=== PATIENT | female | born 1990 | race Two or more races ===

== ENCOUNTER 2017-04-06 18:15 | Inpatient (IN) | payer OTHER ==
[~2017-04-06] VITALS: Ht 157.5 cm; Wt 90.0 kg
[2017-04-06] MEDS ORDERED: KETOROLAC 30 MG/1 ML IM ONE (18:30)
[2017-04-06] MEDS ORDERED: KETOROLAC 30 MG/1 ML ONE (19:02)
[2017-04-06 20:14] LABS: HEMATOCRIT 41.1 % (34.6-47.8); HEMOGLOBIN 13.9 g/dL (11.7-16.4); WHITE BLOOD COUNT 8.5 x10^3/uL (3.4-10)
[2017-04-06 20:16] LABS: BLOOD UREA NITROGEN 12 mg/dL (7-18)
[2017-04-06] MEDS ORDERED: POLYETHYLENE GLYCOL 17 GM PACKET PO PRN (23:00)
[2017-04-06] MEDS ORDERED: BISACODYL 10 MG SUPP PR PRN (23:00)
[2017-04-06] MEDS ORDERED: ASPIRIN 325 MG TABLET EC PO ONE (23:00)
[2017-04-06] MEDS ORDERED: ONDANSETRON 2MG/ML, 2ML IVPush PRN (23:00)
[2017-04-07 00:33] VITALS: BP 132/86
[2017-04-07] MEDS ORDERED: ASPIRIN 81 MG TABLET EC PO ONE (02:00)
[2017-04-07] MEDS: HEPARIN 5,000 UNITS/ML, 1ML SQ SCH ×3 (02:13→18:39)
[2017-04-07] MEDS: SODIUM CHLORIDE FLUSH 10ML SYR IVF SCH ×3 (02:14→20:25)
[2017-04-07 03:05] VITALS: BP 118/76
[2017-04-07] MEDS ORDERED: PREGABALIN 25 MG CAPSULE PO SCH (03:30)
[2017-04-07 06:50] VITALS: BP 118/79
[2017-04-07] MEDS: SENNA/DOCUSATE TABLET PO SCH (09:00)
[2017-04-07] MEDS: PREGABALIN 25 MG CAPSULE PO SCH ×2 (11:39→20:24)
[2017-04-07 15:02] VITALS: BP 138/87
[2017-04-07] MEDS: ACETAMINOPHEN 325 MG TABLET PO PRN ×2 (15:02→22:46)
[2017-04-07 20:00] VITALS: BP 129/83
[2017-04-07] MEDS ORDERED: KETOROLAC 30 MG/1 ML IVPush ONE (23:00)
[2017-04-08 02:40] VITALS: BP 122/85
[2017-04-08] MEDS: ACETAMINOPHEN 325 MG TABLET PO PRN ×2 (03:07→09:05)
[2017-04-08] MEDS: HEPARIN 5,000 UNITS/ML, 1ML SQ SCH ×2 (03:07→09:04)
[2017-04-08 05:45] LABS: BLOOD UREA NITROGEN 16 mg/dL (7-18)
[2017-04-08 05:49] LABS: HEMATOCRIT 39.3 % (34.6-47.8); HEMOGLOBIN 13.1 g/dL (11.7-16.4); WHITE BLOOD COUNT 6.9 x10^3/uL (3.4-10)
[2017-04-08 07:15] VITALS: BP 136/89
[2017-04-08] MEDS: SODIUM CHLORIDE FLUSH 10ML SYR IVF SCH (08:38)
[2017-04-08] MEDS: SENNA/DOCUSATE TABLET PO SCH (08:39)
[2017-04-08] MEDS: PREGABALIN 25 MG CAPSULE PO SCH (09:04)
[2017-04-08 13:24] VITALS: BP 112/73
[2017-04-08] MEDS ORDERED: PREG25CA PO (16:44)
[2017-04-12 15:22] LABS: RHEUMATOID FACTOR SCREEN NEGATIVE (NEGATIVE)
[2017-04-12 17:40] LABS: ANA SCREEN POSITIVE (Negative)
== END 2017-04-08 18:51 | disposition home or self-care (01) | DRG 948 ==
LOC: ED 19:34 → EDIP 22:09 → 4WST 04-07 00:19
PROVIDERS: ADMIT Hospitalist; ATTEND Hospitalist
DX: R53.1 Weakness (principal); G62.9 Polyneuropathy, unspecified; R20.2 Paresthesia of skin; E66.9 Obesity, unspecified; F43.22 Adjustment disorder with anxiety; Z68.36 Body mass index [BMI] 36.0-36.9, adult; F44.9 Dissociative and conversion disorder, unspecified; N94.6 Dysmenorrhea, unspecified; Z83.3 Family history of diabetes mellitus
CPT/HCPCS: 36415; 70450; 70551; 72050; 72141; 80048; 80061; 82607; 84439; 84443; 84703; 85025; 85651; 86038; 86039; 86430; 93005; 93306; 93880; 99285; J1644; J1885

== ENCOUNTER 2018-03-20 09:39 | Emergency (ER) | payer OTHER ==
[~2018-03-20] VITALS: Ht 157.5 cm; Wt 91.8 kg
[~2018-03-20 09:39] MED LIST: PREG25CA PO
[2018-03-20] MEDS ORDERED: IBUP-1223 PO (11:04)
[2018-03-20] MEDS ORDERED: AMOX1TAB64 PO (11:05)
[2018-03-20] MEDS ORDERED: DIPHENHYDRAMINE 25 MG CAPSULE PO ONE (12:00)
[2018-03-20] MEDS ORDERED: METOCLOPRAMIDE 5 MG/ML, 2ML IVPush ONE (12:00)
[2018-03-20 12:04] LABS: BASOPHILS # (AUTO) 0.04 x10^3/uL (0-0.1); BASOPHILS % (AUTO) 0 % (0-1); EOSINOPHILS # (AUTO) 0.19 x10^3/uL (0-0.4); EOSINOPHILS % (AUTO) 2 % (1-7); LYMPHOCYTES # (AUTO) 2.29 x10^3/uL (1-3.4); LYMPHOCYTES % (AUTO) 21 % (22-44); MD NO; MEAN CORPUSCULAR HEMOGLOBIN 28.6 pg (27.0-34.8); MEAN CORPUSCULAR HGB CONC 33.9 g/dL (32.4-35.8); MEAN CORPUSCULAR VOLUME 84.3 fL (80-100); MONOCYTES # (AUTO) 0.49 x10^3/uL (0.2-0.8); MONOCYTES % (AUTO) 5 % (2-9); NEUTROPHILS # (AUTO) 7.88 x10^3/uL (1.8-6.8); NEUTROPHILS % (AUTO) 72 % (42-75); PLATELET COUNT 280 x10^3/uL (130-400); RED BLOOD COUNT 5.15 x10^6/uL (3.82-5.3); RED CELL DISTRIBUTION WIDTH 13.6 % (9.6-15.2)
[2018-03-20 12:14] LABS: ALBUMIN 4.1 g/dL (3.4-5.0); ANION GAP 9 mmol/L (5-15); CALCIUM 9.4 mg/dL (8.5-10.1); CHLORIDE 105 mmol/L (98-107); CREATININE 0.74 mg/dL (0.55-1.02)
[2018-03-20] MEDS ORDERED: DIPHENHYDRAMINE 25 MG CAPSULE ONE (12:23)
[2018-03-20] MEDS ORDERED: METOCLOPRAMIDE 5 MG/ML, 2ML ONE (12:23)
[2018-03-20] MEDS ORDERED: METOCLOPRAMIDE 5 MG/ML, 2ML IM ONE (14:00)
[2018-03-20] MEDS ORDERED: KETOROLAC 30 MG/1 ML IM ONE (14:00)
[2018-03-20] MEDS ORDERED: KETOROLAC 30 MG/1 ML ONE (15:26)
[2018-03-20] MEDS ORDERED: DEXAMETHASONE 4 MG TABLET ONE (15:26)
[2018-03-20] MEDS ORDERED: DEXAMETHASONE 4 MG TABLET PO ONE (15:30)
[2018-03-20 15:35] VITALS: BP 128/77
== END 2018-03-20 16:08 | disposition home or self-care (01) ==
LOC: ED 12:00
DX: R51 Headache (principal)
CPT/HCPCS: 36415; 70450; 71045; 80048; 82040; 85025; 93005; 96372; 99285; J1885; J2765; Q0163

== ENCOUNTER → 2018-04-05 | Outpatient (CLI) | payer OTHER ==
[~2018-04-05] MED LIST changes: +AMOX1TAB64 PO; +IBUP-1223 PO
[2018-04-05 11:02] LABS: BASOPHILS # (AUTO) 0.04 x10^3/uL (0-0.1); BASOPHILS % (AUTO) 0 % (0-1); EOSINOPHILS # (AUTO) 0.22 x10^3/uL (0-0.4); EOSINOPHILS % (AUTO) 2 % (1-7); LYMPHOCYTES # (AUTO) 2.14 x10^3/uL (1-3.4); LYMPHOCYTES % (AUTO) 22 % (22-44); MD NO; MEAN CORPUSCULAR HEMOGLOBIN 28.7 pg (27.0-34.8); MEAN CORPUSCULAR HGB CONC 34.1 g/dL (32.4-35.8); MEAN CORPUSCULAR VOLUME 84.3 fL (80-100); MEAN PLATELET VOLUME 8.3 fL (7.4-10.4); MONOCYTES # (AUTO) 0.42 x10^3/uL (0.2-0.8); MONOCYTES % (AUTO) 4 % (2-9); NEUTROPHILS # (AUTO) 6.72 x10^3/uL (1.8-6.8); NEUTROPHILS % (AUTO) 70 % (42-75); PLATELET COUNT 261 x10^3/uL (130-400); RED BLOOD COUNT 4.87 x10^6/uL (3.82-5.3); RED CELL DISTRIBUTION WIDTH 13.5 % (9.6-15.2)
[2018-04-05 11:12] LABS: ALBUMIN 3.8 g/dL (3.4-5.0); ANION GAP 8 mmol/L (5-15); CALCIUM 8.5 mg/dL (8.5-10.1); CHLORIDE 105 mmol/L (98-107)
[2018-04-05 11:27] LABS: ALANINE AMINOTRANSFERASE 34 U/L (12-78); ALKALINE PHOSPHATASE 46 U/L (45-117); BILIRUBIN,TOTAL 0.5 mg/dL (0.2-1.0); CHOL/HDL RATIO 4.3; CHOLESTEROL, TOTAL 146 mg/dL (140-239); CREATININE 0.63 mg/dL (0.55-1.02); FREE T4 (FREE THYROXINE) 1.11 ng/dL (0.76-1.46); HDL CHOL % 23 % (28-40); HDL CHOLESTEROL (DIRECT) 34 mg/dL (40-60); LDL CHOLESTEROL,CALCULATED 64 mg/dL (54-169); LDL/HDL RATIO 1.9 (0.5-3.0); TOTAL PROTEIN 7.7 g/dL (6.4-8.2); TRIGLYCERIDES 241 mg/dL (50-200); VLDL CHOLESTEROL 48 mg/dL (0-25)
[2018-04-05 12:44] LABS: HEMOGLOBIN A1C 6.7 % (4.2-6.3)
== END | disposition home or self-care (01) ==
LOC: LAB 10:48
PROVIDERS: ATTEND Family Medicine
DX: Z00.01 Encounter for general adult medical examination with abnormal findings (principal); E66.9 Obesity, unspecified; R53.83 Other fatigue
CPT/HCPCS: 36415; 80053; 80061; 83036; 84439; 84443; 84481; 85025

== ENCOUNTER 2018-07-09 11:11 | Emergency (ER) | payer SELFPAY ==
[~2018-07-09] VITALS: Ht 157.5 cm; Wt 89.0 kg
--- NOTE | 2018-07-09 11:50 | NUR ---
IV PLACED, BLOOD DRAWN AND SENT TO LAB. PT IS CONNECTED TO THE MONITOR. CALL LIGHT WITHIN REAC. PT THEN AMBULATED TO THE BATHROOM WITH STEADY GAIT TO PROVIDE A URINE SAMPLE.
[2018-07-09] MEDS ORDERED: KETOROLAC 30 MG/1 ML ONE (11:54)
[2018-07-09] MEDS ORDERED: ONDANSETRON 2MG/ML, 2ML ONE (11:54)
[2018-07-09] MEDS ORDERED: MORPHINE SULFATE 4 MG/ML, 1ML ONE (11:55)
[2018-07-09 11:58] LABS: BASOPHILS # (AUTO) 0.05 x10^3/uL (0-0.1); BASOPHILS % (AUTO) 0 % (0-1); EOSINOPHILS # (AUTO) 0.15 x10^3/uL (0-0.4); EOSINOPHILS % (AUTO) 1 % (1-7); LYMPHOCYTES # (AUTO) 1.72 x10^3/uL (1-3.4); LYMPHOCYTES % (AUTO) 15 % (22-44); MD NO; MEAN CORPUSCULAR HEMOGLOBIN 28.5 pg (27.0-34.8); MEAN CORPUSCULAR HGB CONC 33.9 g/dL (32.4-35.8); MEAN CORPUSCULAR VOLUME 84.3 fL (80-100); MEAN PLATELET VOLUME 8.2 fL (7.4-10.4); MONOCYTES # (AUTO) 0.56 x10^3/uL (0.2-0.8); MONOCYTES % (AUTO) 5 % (2-9); NEUTROPHILS # (AUTO) 9.07 x10^3/uL (1.8-6.8); NEUTROPHILS % (AUTO) 79 % (42-75); PLATELET COUNT 325 x10^3/uL (130-400); RED BLOOD COUNT 4.75 x10^6/uL (3.82-5.3); RED CELL DISTRIBUTION WIDTH 13.3 % (9.6-15.2)
[2018-07-09] MEDS ORDERED: ONDANSETRON 2MG/ML, 2ML IVPush ONE (12:00)
[2018-07-09] MEDS ORDERED: SODIUM CHLORIDE FLUSH 10ML SYR IVF ONE (12:00)
[2018-07-09] MEDS ORDERED: KETOROLAC 30 MG/1 ML IVPush ONE (12:00)
[2018-07-09] MEDS ORDERED: MORPHINE SULFATE 4 MG/ML, 1ML IVPush PRN (12:00)
--- NOTE | 2018-07-09 12:03 | NUR ---
PT STATED THAT SHE HAS KIDNEY STONES. C/O RIGHT AND LEFT FLANK PAIN SINCE THE May. DENIES MEDICAL HISTORY. PT IS ALERT AND ORIENTED. PT IS CONNECTED TO THE MONITOR. CALL LIGHT WITHIN REACH. PT MEDICATED PER ORDER. FAMILY AT BEDSIDE
[2018-07-09 12:07] LABS: ALBUMIN 4.1 g/dL (3.4-5.0); ANION GAP 7 mmol/L (5-15); CALCIUM 9.1 mg/dL (8.5-10.1); CHLORIDE 106 mmol/L (98-107)
[2018-07-09 12:14] LABS: ALANINE AMINOTRANSFERASE 24 U/L (12-78); ALKALINE PHOSPHATASE 54 U/L (45-117); BILIRUBIN,TOTAL 0.4 mg/dL (0.2-1.0); CREATININE 1.02 mg/dL (0.55-1.02); TOTAL PROTEIN 8.9 g/dL (6.4-8.2)
[2018-07-09 12:36] LABS: MICROSCOPIC AUTO
[2018-07-09 12:41] LABS: CULTURE INDICATED? NO
--- NOTE | 2018-07-09 12:51 | NUR ---
REPORT GIVEN TO ABIGAIL MARX.
--- NOTE | 2018-07-09 12:57 | NUR ---
REPORT RECEIVED FROM ARASELI PANDEY, PT IN CT AT THIS TIME.
--- NOTE | 2018-07-09 13:18 | NUR ---
pt back from CT, reports left flank pain level 5/10, declines additional dose morphine at this time. pt denies any needs. pt a&o, resps even and unlabored. bp and spo2 monitors in place. call light in reach. awaiting ct results and dispo at this time.
[2018-07-09 14:21] VITALS: BP 113/52
--- NOTE | 2018-07-09 14:23 | NUR ---
pt given dc instruction and script, educated regarding zofran, percocet and flomax rx. pt instructed not to drive. pt a&o, resps even and unlabored, nand at this time. pt amb to dc desk with steady gait accompanied by parents.
== END 2018-07-09 14:24 | disposition home or self-care (01) ==
LOC: ED 13:24
DX: N13.2 Hydronephrosis with renal and ureteral calculous obstruction (principal)
CPT/HCPCS: 36415; 74176; 80053; 81001; 83690; 84703; 85025; 96374; 96375; 99284; J1885; J2405

== ENCOUNTER 2018-07-20 17:37 | Inpatient (IN) | payer OTHER ==
[~2018-07-20] VITALS: Ht 157.5 cm; Wt 70.0 kg
[2018-07-20 18:14] LABS: BASOPHILS # (AUTO) 0.04 x10^3/uL (0-0.1); BASOPHILS % (AUTO) 0 % (0-1); EOSINOPHILS # (AUTO) 0.03 x10^3/uL (0-0.4); EOSINOPHILS % (AUTO) 0 % (1-7); LYMPHOCYTES # (AUTO) 0.73 x10^3/uL (1-3.4); LYMPHOCYTES % (AUTO) 4 % (22-44); MD NO; MEAN CORPUSCULAR HEMOGLOBIN 28.3 pg (27.0-34.8); MEAN CORPUSCULAR VOLUME 83.3 fL (80-100); MEAN PLATELET VOLUME 8.3 fL (7.4-10.4); MONOCYTES % (AUTO) 2 % (2-9); NEUTROPHILS # (AUTO) 16.69 x10^3/uL (1.8-6.8); NEUTROPHILS % (AUTO) 94 % (42-75); PLATELET COUNT 314 x10^3/uL (130-400); RED BLOOD COUNT 5.03 x10^6/uL (3.82-5.3); RED CELL DISTRIBUTION WIDTH 13.1 % (9.6-15.2)
[2018-07-20 18:21] LABS: ALANINE AMINOTRANSFERASE 21 U/L (12-78); ALBUMIN 4.3 g/dL (3.4-5.0); ANION GAP 6 mmol/L (5-15); CALCIUM 9.1 mg/dL (8.5-10.1); CHLORIDE 104 mmol/L (98-107); CREATININE 0.87 mg/dL (0.55-1.02)
[2018-07-20 18:23] LABS: ALKALINE PHOSPHATASE 58 U/L (45-117); BILIRUBIN,TOTAL 0.5 mg/dL (0.2-1.0); TOTAL PROTEIN 9.2 g/dL (6.4-8.2)
[2018-07-20] MEDS ORDERED: SODIUM CHLORIDE 0.9% 1,000 ML IV ONE (18:43)
[2018-07-20] MEDS ORDERED: KETOROLAC 30 MG/1 ML IVPush ONE (19:00)
[2018-07-20] MEDS ORDERED: SODIUM CHLORIDE 0.9% 1,000ML IVBOLUS ONE (19:00)
[2018-07-20] MEDS ORDERED: ONDANSETRON 2MG/ML, 2ML IVPush ONE (19:00)
[2018-07-20] MEDS ORDERED: SODIUM CHLORIDE FLUSH 10ML SYR IVF ONE ×2 (19:00)
[2018-07-20] MEDS ORDERED: PROMETHAZINE 25 MG/ML, 1ML IM ONE (19:00)
--- NOTE | 2018-07-20 19:05 | NUR ---
Patient transported for ultrasound
--- NOTE | 2018-07-20 19:30 | NUR ---
Plan of care discussed with patient, questions answered, verbalizes understanding. Patient requests to hold off on phenergan at this time, patient encouraged to call if nausea is not controlled with zofran.
[2018-07-20] MEDS ORDERED: KETOROLAC 30 MG/1 ML ONE ×2 (19:31→22:42)
[2018-07-20] MEDS ORDERED: ONDANSETRON 2MG/ML, 2ML ONE ×2 (19:31→21:56)
[2018-07-20] MEDS ORDERED: PROMETHAZINE 25 MG/ML, 1ML ONE (19:31)
[2018-07-20] MEDS ORDERED: HYDROmorphone 1 MG/ML, 1ML ONE (19:32)
[2018-07-20] MEDS: HYDROmorphone 2 MG/ML, 1ML IVPush PRN ×2 (19:36→23:50)
[2018-07-20 20:03] LABS: MICROSCOPIC AUTO
[2018-07-20 20:04] LABS: CULTURE INDICATED? YES
[2018-07-20] MEDS ORDERED: CEFTRIAXONE PMX 1GM/50ML 50 ML IV ONE (20:30)
[2018-07-20] MEDS ORDERED: CEFTRIAXONE PMX 1GM/50ML 50 ML ONE (20:38)
[2018-07-20] MEDS ORDERED: ONDANSETRON 2MG/ML, 2ML IVPush PRN (21:30)
[2018-07-20] MEDS ORDERED: FENTANYL PF 100 MCG/2ML ONE ×2 (21:50→22:42)
[2018-07-20] MEDS ORDERED: MIDAZOLAM 1 MG/ML, 2ML ONE (21:50)
[2018-07-20] MEDS ORDERED: DEXAMETHASONE 4 MG/ML, 1ML ONE (21:56)
[2018-07-20] MEDS ORDERED: SUCCINYLCHOLINE 20 MG/ML, 10ML ONE (21:56)
[2018-07-20] MEDS ORDERED: PROPOFOL 10 MG/ML, 20ML ONE (21:56)
[2018-07-20] MEDS ORDERED: OMNIPAQUE 350 MG/ML, 50 ML BOTTLE INJ ONE (22:20)
[2018-07-20] MEDS ORDERED: OXYcodone 5 MG/5 ML ORAL.SOL UDC ONE (22:43)
[2018-07-20] MEDS ORDERED: OPIUM/BELLADONNA SUPP.RECT 16.2-30 MG ONE (22:43)
[2018-07-20] MEDS: FENTANYL PF 100 MCG/2ML IV PRN ×3 (22:45→23:03)
[2018-07-20] MEDS: OPIUM/BELLADONNA SUPP.RECT 16.2-60 MG PR PRN (22:50)
[2018-07-20] MEDS ORDERED: LABETALOL 5MG/ML, 20ML IV PRN (23:00)
[2018-07-20] MEDS ORDERED: ALBUTEROL SULFATE 2.5 MG/3 ML NPPB PRN (23:00)
[2018-07-20] MEDS ORDERED: MEPERIDINE/PF 25MG/0.5ML IVPush PRN (23:00)
[2018-07-20] MEDS ORDERED: PROMETHAZINE 25 MG/ML, 1ML IV PRN (23:00)
[2018-07-20] MEDS ORDERED: KETOROLAC 30 MG/1 ML IV PRN (23:00)
[2018-07-20] MEDS ORDERED: DIAZEPAM 5 MG/ML, 2ML IVPush PRN (23:00)
[2018-07-20] MEDS ORDERED: HYDROmorphone 2 MG/ML, 1ML IVPush PRN (23:00)
[2018-07-20] MEDS ORDERED: hydrALAzine 20 MG/ML, 1ML IV PRN (23:00)
[2018-07-20] MEDS ORDERED: ACETAMINOPHEN 325 MG TABLET PO PRN (23:00)
[2018-07-20] MEDS ORDERED: OXYcodone 5 MG/5 ML ORAL.SOL UDC PO PRN (23:00)
[2018-07-21] VITALS: BP 111/65
[2018-07-21] MEDS: ACETAMINOPHEN 325 MG TABLET PO PRN ×3 (01:04→18:35)
[2018-07-21] MEDS: morphine SULFATE 10 MG/ML, 1ML IVPush PRN ×5 (02:44→20:17)
[2018-07-21] MEDS: SODIUM CHLORIDE 0.9% 1,000 ML IV SCH ×3 (04:02→20:09)
[2018-07-21] MEDS: PHENAZOPYRIDINE 200 MG TABLET PO PRN ×2 (04:13→16:09)
[2018-07-21] MEDS: KETOROLAC 30 MG/1 ML IM PRN ×3 (04:13→20:17)
[2018-07-21 04:36] VITALS: BP 107/72
[2018-07-21 05:09] LABS: ANION GAP 6 mmol/L (5-15); CALCIUM 7.8 mg/dL (8.5-10.1); CHLORIDE 107 mmol/L (98-107); CREATININE 0.88 mg/dL (0.55-1.02)
[2018-07-21 05:15] LABS: MEAN CORPUSCULAR HEMOGLOBIN 28.5 pg (27.0-34.8); MEAN CORPUSCULAR HGB CONC 34.1 g/dL (32.4-35.8); MEAN CORPUSCULAR VOLUME 83.7 fL (80-100); MEAN PLATELET VOLUME 8.7 fL (7.4-10.4); PLATELET COUNT 253 x10^3/uL (130-400); RED BLOOD COUNT 4.12 x10^6/uL (3.82-5.3); RED CELL DISTRIBUTION WIDTH 13.1 % (9.6-15.2)
[2018-07-21 06:02] LABS: BASOPHILS % (AUTO) 0 % (0-1); EOSINOPHILS % (AUTO) 0 % (1-7); LYMPHOCYTES # (AUTO) 0.47 x10^3/uL (1-3.4); LYMPHOCYTES % (AUTO) 4 % (22-44); MD SCAN; MONOCYTES # (AUTO) 0.12 x10^3/uL (0.2-0.8); MONOCYTES % (AUTO) 1 % (2-9); NEUTROPHILS # (AUTO) 12.91 x10^3/uL (1.8-6.8); NEUTROPHILS % (AUTO) 96 % (42-75)
[2018-07-21 07:20] VITALS: BP 102/68
[2018-07-21] MEDS: OPIUM/BELLADONNA SUPP.RECT 16.2-60 MG PR PRN (09:18)
[2018-07-21 14:02] LABS: HEMOGLOBIN A1C 5.8 % (4.2-6.3)
[2018-07-21 14:26] VITALS: BP 110/62
[2018-07-21 19:26] VITALS: BP 109/61
[2018-07-21] MEDS: CEFTRIAXONE PMX 1GM/50ML 50 ML IV SCH (20:10)
[2018-07-22] MEDS: morphine SULFATE 10 MG/ML, 1ML IVPush PRN ×2 (00:18→04:36)
[2018-07-22] MEDS: PHENAZOPYRIDINE 200 MG TABLET PO PRN (00:18)
[2018-07-22 00:42] VITALS: BP 115/74
[2018-07-22] MEDS: SODIUM CHLORIDE 0.9% 1,000 ML IV SCH ×3 (04:36→23:30)
[2018-07-22 05:27] LABS: ALBUMIN 2.8 g/dL (3.4-5.0); ANION GAP 4 mmol/L (5-15); CALCIUM 7.3 mg/dL (8.5-10.1); CHLORIDE 113 mmol/L (98-107)
[2018-07-22 05:30] LABS: CREATININE 0.63 mg/dL (0.55-1.02)
[2018-07-22 05:40] LABS: BASOPHILS # (AUTO) 0.02 x10^3/uL (0-0.1); BASOPHILS % (AUTO) 0 % (0-1); EOSINOPHILS # (AUTO) 0.09 x10^3/uL (0-0.4); EOSINOPHILS % (AUTO) 1 % (1-7); LYMPHOCYTES # (AUTO) 1.95 x10^3/uL (1-3.4); LYMPHOCYTES % (AUTO) 20 % (22-44); MD NO; MEAN CORPUSCULAR HEMOGLOBIN 28.6 pg (27.0-34.8); MEAN CORPUSCULAR VOLUME 83.9 fL (80-100); MEAN PLATELET VOLUME 8.4 fL (7.4-10.4); MONOCYTES # (AUTO) 0.51 x10^3/uL (0.2-0.8); MONOCYTES % (AUTO) 5 % (2-9); NEUTROPHILS # (AUTO) 7.14 x10^3/uL (1.8-6.8); NEUTROPHILS % (AUTO) 74 % (42-75); PLATELET COUNT 219 x10^3/uL (130-400); RED BLOOD COUNT 3.45 x10^6/uL (3.82-5.3); RED CELL DISTRIBUTION WIDTH 13.5 % (9.6-15.2)
[2018-07-22 07:25] VITALS: BP 93/60
[2018-07-22] MEDS: KETOROLAC 30 MG/1 ML IM PRN ×2 (07:32→22:59)
[2018-07-22] MEDS: OPIUM/BELLADONNA SUPP.RECT 16.2-60 MG PR PRN (13:40)
[2018-07-22 13:56] VITALS: BP 118/76
[2018-07-22 19:45] VITALS: BP 110/71
[2018-07-22] MEDS: CEFTRIAXONE PMX 1GM/50ML 50 ML IV SCH (20:26)
[2018-07-23 01:31] VITALS: BP 102/69
[2018-07-23 05:04] LABS: ALBUMIN 2.8 g/dL (3.4-5.0); ANION GAP 2 mmol/L (5-15); CALCIUM 7.2 mg/dL (8.5-10.1); CHLORIDE 111 mmol/L (98-107)
[2018-07-23] MEDS: KETOROLAC 30 MG/1 ML IM PRN (05:06)
[2018-07-23 05:08] LABS: CREATININE 0.66 mg/dL (0.55-1.02)
[2018-07-23 06:43] VITALS: BP 105/68
[2018-07-23] MEDS: SODIUM CHLORIDE 0.9% 1,000 ML IV SCH ×2 (06:45→22:55)
[2018-07-23] MEDS ORDERED: POTASSIUM CHLORIDE 10% 40 MEQ/30 ML UDC PO ONE (07:00)
[2018-07-23] MEDS: TAMSULOSIN 0.4 MG CAP.ER.24H PO SCH (07:57)
[2018-07-23] MEDS: PHENAZOPYRIDINE 200 MG TABLET PO PRN (13:10)
[2018-07-23] MEDS: OPIUM/BELLADONNA SUPP.RECT 16.2-60 MG PR PRN ×2 (13:10→21:06)
[2018-07-23 13:12] VITALS: BP 119/79
[2018-07-23] MEDS ORDERED: OXYcodone 5 MG/5 ML ORAL.SOL UDC PO PRN (14:00)
[2018-07-23 18:56] VITALS: BP 124/77
[2018-07-23] MEDS: CEFTRIAXONE PMX 1GM/50ML 50 ML IV SCH (20:56)
[2018-07-23] MEDS: ACETAMINOPHEN 325 MG TABLET PO PRN (23:01)
[2018-07-24 00:35] VITALS: BP 111/72
[2018-07-24 05:12] LABS: BASOPHILS # (AUTO) 0.04 x10^3/uL (0-0.1); BASOPHILS % (AUTO) 0 % (0-1); EOSINOPHILS # (AUTO) 0.33 x10^3/uL (0-0.4); EOSINOPHILS % (AUTO) 4 % (1-7); LYMPHOCYTES # (AUTO) 1.89 x10^3/uL (1-3.4); LYMPHOCYTES % (AUTO) 23 % (22-44); MD NO; MEAN CORPUSCULAR HEMOGLOBIN 28.5 pg (27.0-34.8); MEAN CORPUSCULAR HGB CONC 34.2 g/dL (32.4-35.8); MEAN CORPUSCULAR VOLUME 83.2 fL (80-100); MEAN PLATELET VOLUME 8.4 fL (7.4-10.4); MONOCYTES # (AUTO) 0.41 x10^3/uL (0.2-0.8); MONOCYTES % (AUTO) 5 % (2-9); NEUTROPHILS # (AUTO) 5.62 x10^3/uL (1.8-6.8); NEUTROPHILS % (AUTO) 68 % (42-75); PLATELET COUNT 252 x10^3/uL (130-400); RED BLOOD COUNT 3.92 x10^6/uL (3.82-5.3); RED CELL DISTRIBUTION WIDTH 13.1 % (9.6-15.2)
[2018-07-24 05:20] LABS: ANION GAP 5 mmol/L (5-15); CHLORIDE 108 mmol/L (98-107)
[2018-07-24 05:23] LABS: CALCIUM 8.3 mg/dL (8.5-10.1); CREATININE 0.66 mg/dL (0.55-1.02)
[2018-07-24] MEDS ORDERED: POTASSIUM CHLORIDE 10% 20 MEQ/15 ML UDC PO ONE (06:30)
[2018-07-24] MEDS: SODIUM CHLORIDE 0.9% 1,000 ML IV SCH ×2 (06:33→15:27)
[2018-07-24 07:08] VITALS: BP 109/62
[2018-07-24] MEDS: TAMSULOSIN 0.4 MG CAP.ER.24H PO SCH (07:54)
[2018-07-24] MEDS ORDERED: OPIU1SUP PR (09:31)
[2018-07-24] MEDS ORDERED: PHEN-583 PO (09:31)
[2018-07-24] MEDS ORDERED: ACET325T14 PO (09:31)
[2018-07-24] MEDS ORDERED: TAMS-11 PO (09:31)
[2018-07-24] MEDS ORDERED: L.AC1CAP6 PO (09:31)
[2018-07-24] MEDS ORDERED: CEFD300C37 PO (09:31)
[2018-07-24 13:22] VITALS: BP 117/78
[2018-07-24 16:30] VITALS: BP 118/68
== END 2018-07-24 17:10 | disposition home or self-care (01) | DRG 854 ==
LOC: ED 18:23 → EDIP 20:27 → 4NOR 23:32 → DCLOUNGE 07-24 17:00
PROVIDERS: ADMIT Internal Medicine; ATTEND Internal Medicine
PROC: BT1F1ZZ Fluoroscopy of Left Kidney, Ureter and Bladder using Low Osmolar Contrast (ICD-10-PCS; 2018-07-20)
PROC: 0T9B70Z Drainage of Bladder with Drainage Device, Via Natural or Artificial Opening (ICD-10-PCS; 2018-07-20)
PROC: 0T778DZ Dilation of Left Ureter with Intraluminal Device, Via Natural or Artificial Opening Endoscopic (ICD-10-PCS; principal; 2018-07-20 22:15)
DX: A41.9 Sepsis, unspecified organism (principal); N13.6 Pyonephrosis; E11.9 Type 2 diabetes mellitus without complications; I10 Essential (primary) hypertension; E86.0 Dehydration; E66.9 Obesity, unspecified; Z71.3 Dietary counseling and surveillance; Z82.49 Family history of ischemic heart disease and other diseases of the circulatory system; Z83.3 Family history of diabetes mellitus; Z68.28 Body mass index [BMI] 28.0-28.9, adult
CPT/HCPCS: 36415; 74018; 76770; 80048; 80053; 81001; 81025; 82040; 83036; 84443; 84702; 85025; 87040; 87086; 99283; G0378; J0696; J1100; J1170; J1885; J2250; J2405; J2704; J3010; Q9967; C2617; J0330; J2270; J7030

== ENCOUNTER 2018-07-27 10:01 | Emergency (ER) | payer OTHER ==
[~2018-07-27] VITALS: Ht 157.5 cm; Wt 88.7 kg
[~2018-07-27 10:01] MED LIST changes: +ACET325T14 PO; +CEFD300C37 PO; +L.AC1CAP6 PO; +OPIU1SUP PR; +PHEN-583 PO; +TAMS-11 PO
--- NOTE | 2018-07-27 10:45 | NUR ---
PT AMBULATED TO ROOM WITH STEADY GAIT. PT C/O LLQ ABD PAIN RADIATING TO L FLANK SINCE LAST NIGHT. REPORTS HAVING CHILLS, N/V, AND DIZZINESS. URETERAL STENT PLACED ON 07/[address] BURNETTE. PT IS ALERT AND ORIENTED. PT IS CONNECTED TO THE MONITOR. CALL LIGHT WITHIN REACH. PT AMBULATED TO BATHROOM TO PROVIDE A URINE SAMPLE.
[2018-07-27] MEDS ORDERED: ONDANSETRON 2MG/ML, 2ML ONE (11:11)
[2018-07-27] MEDS ORDERED: MORPHINE SULFATE 4 MG/ML, 1ML ONE ×2 (11:11→15:13)
[2018-07-27] MEDS: MORPHINE SULFATE 4 MG/ML, 1ML IVPush PRN ×2 (11:14→15:15)
[2018-07-27 11:18] LABS: MICROSCOPIC INDICATED
--- NOTE | 2018-07-27 11:18 | NUR ---
PT MEDICATED. PT TAKEN TO US.
[2018-07-27 11:26] LABS: CULTURE INDICATED? YES
[2018-07-27] MEDS ORDERED: SODIUM CHLORIDE FLUSH 10ML SYR IVF ONE (11:30)
[2018-07-27] MEDS ORDERED: ONDANSETRON 2MG/ML, 2ML IVPush ONE (11:30)
--- NOTE | 2018-07-27 12:11 | NUR ---
PT IS RESTING IN BED, TALKING WITH STAFF, RESPIRATIONS EQUAL AND NON LABORED. NAD. PT IS CONNECTED TO THE MONITOR. CALL LIGHT WITHIN REACH. MOM AT BEDSIDE.
[2018-07-27 12:22] LABS: MEAN CORPUSCULAR HEMOGLOBIN 27.7 pg (27.0-34.8); MEAN CORPUSCULAR HGB CONC 33.2 g/dL (32.4-35.8); MEAN CORPUSCULAR VOLUME 83.3 fL (80-100); MEAN PLATELET VOLUME 8.6 fL (7.4-10.4); PLATELET COUNT 391 x10^3/uL (130-400); RED BLOOD COUNT 5.42 x10^6/uL (3.82-5.3); RED CELL DISTRIBUTION WIDTH 13.1 % (9.6-15.2)
[2018-07-27 12:28] LABS: ALANINE AMINOTRANSFERASE 31 U/L (12-78); ALBUMIN 4.5 g/dL (3.4-5.0); ANION GAP 6 mmol/L (5-15); CALCIUM 9.2 mg/dL (8.5-10.1); CHLORIDE 106 mmol/L (98-107); CREATININE 0.96 mg/dL (0.55-1.02)
[2018-07-27 12:32] LABS: ALKALINE PHOSPHATASE 64 U/L (45-117); BILIRUBIN,TOTAL 0.4 mg/dL (0.2-1.0); TOTAL PROTEIN 9.6 g/dL (6.4-8.2)
[2018-07-27 12:47] LABS: BASOPHILS # (AUTO) 0.06 x10^3/uL (0-0.1); BASOPHILS % (AUTO) 0 % (0-1); EOSINOPHILS # (AUTO) 0.44 x10^3/uL (0-0.4); EOSINOPHILS % (AUTO) 3 % (1-7); LYMPHOCYTES # (AUTO) 1.87 x10^3/uL (1-3.4); LYMPHOCYTES % (AUTO) 14 % (22-44); MD SCAN; MONOCYTES # (AUTO) 0.54 x10^3/uL (0.2-0.8); MONOCYTES % (AUTO) 4 % (2-9); NEUTROPHILS # (AUTO) 10.52 x10^3/uL (1.8-6.8); NEUTROPHILS % (AUTO) 78 % (42-75)
--- NOTE | 2018-07-27 13:37 | NUR ---
PT IS RESTING IN BED, WATCHING TV, RESPIRATIONS EQUAL AND NON LABORED. NAD. PT IS CONNECTED TO THE MONITOR. CALL LIGHT WITHIN REACH.
[2018-07-27 15:08] VITALS: BP 127/80
--- NOTE | 2018-07-27 15:42 | NUR ---
Patient given discharge instructions and they have confirmed that they understand the instructions. Patient ambulatory with steady gait.
== END 2018-07-27 15:44 | disposition home or self-care (01) ==
LOC: ED 11:14
DX: N23 Unspecified renal colic (principal); R31.9 Hematuria, unspecified; F32.9 Major depressive disorder, single episode, unspecified; G43.909 Migraine, unspecified, not intractable, without status migrainosus; F41.0 Panic disorder [episodic paroxysmal anxiety]; E11.9 Type 2 diabetes mellitus without complications; I10 Essential (primary) hypertension; Z87.442 Personal history of urinary calculi
CPT/HCPCS: 36415; 76770; 80053; 81001; 84703; 85025; 87086; 93005; 96374; 96375; 96376; 99284; J2405